=== PATIENT | female | born 1990 | race African-American/Black ===

== ENCOUNTER 2020-02-14 09:16 | Emergency (ER) | payer SELFPAY ==
[2020-02-14 09:22] VITALS: BP 132/75; PULSE 85; RESP 20; TEMP 37.1; O2SAT 100
--- NOTE | 2020-02-14 09:34 | ED.DENTAL ---
HPI - Dental/Oral General Chief complaint: Dental/Oral Stated complaint: toothache Time Seen by Provider: 02/14/20 09:18 Source: RN notes reviewed History of Present Illness HPI Narrative: Patient presents emergency department from home for dental pain. Patient states symptoms been ongoing for the past 1 week. Pain is located in the right upper molar region. States that pain is worse with chewing. Patient states she took no pain medication today and drove her self to the emergency department. She states she does not currently have a dentist. She denies any fevers or chills ear pain rhinorrhea sore throat or any other symptoms. Denies any chance of Related Data Home Medications Medication Instructions Recorded Confirmed No Home Medications 02/14/20 02/14/20 Allergies Allergy/AdvReac Type Severity Reaction Status Date / Time No Known Allergies Allergy Verified 02/14/20 09:18 Review of Systems Review of Systems: Narrative: Gen.: Denies fevers or chills Eyes: Denies eye pain or visual change ENT: See HPI Respiratory: Denies shortness of breath or cough CV: Denies chest pain GI: Denies abdominal pain nausea, emesis denies Musculoskeletal: Denies neck pain Neuro: Denies headache Skin: Denies rash Except as documented, all other systems reviewed and negative PMFSH Past Medical History Medical History (Updated 02/14/20 @ 09:37 by Randy Cortes DO) Patient denies significant medical history Social History Social History (Updated 02/14/20 @ 09:36 by Randy Cortes DO) Smoking status: Never smoker Gender identity (if verbalized by the patient): Female Exam Narrative: Exam Narrative: APPEARANCE: No acute distress, nontoxic, resting in bed HEENT: Normocephalic, atraumatic, TMs clear bilaterally, nares patent, oral mucosa moist, airway patent, tooth #1 is carious and tender to palpation mild erythema with no fluctuance of the gum pain with biting on the tooth in this region, there is no swelling of the cheek no submandibular or sublingual or tenderness, tonsils 2+ with no exudate tolerating own secretions no trismus RESPIRATORY: No respiratory distress MUSCULOSKELETAl: Moves all extremities. NEURO: Awake and alert. Following commands, speech normal, no focal deficits SKIN:: Warm, dry. Normal Color PSYCHIATRIC: Normal affect/mood Course Course Emergency Course: Discussed with patient results of workup and diagnosis. Discussed need for follow-up with primary care, proper use of medication, and reasons to return to the emergency department. Patient understands and agrees to current treatment plan Vital Signs Vital signs: Vital Signs Temperature 98.8 F 02/14/20 09:22 Pulse Rate 85 02/14/20 09:22 Respiratory Rate 20 02/14/20 09:22 Blood Pressure 132/75 02/14/20 09:22 Pulse Oximetry 100 02/14/20 09:22 Temperature 98.8 F 02/14/20 09:22 Pulse Rate 85 02/14/20 09:22 Respiratory Rate 20 02/14/20 09:22 Blood Pressure 132/75 02/14/20 09:22 Pulse Oximetry 100 02/14/20 09:22 Discharge Plan Discharge Clinical Impression: Dental caries, Toothache Patient Disposition: Home, Self-Care Condition: Stable Instructions: Antibiotic Form, Dental Abscess (ED), Toothache (ED) Additional Instructions: Return for increasing pain fever or any other symptoms of concern Prescriptions: New penicillin V potassium 500 mg tablet 500 mg PO TID Qty: 40 RF: 0 ibuprofen [IBU] 600 mg tablet 600 mg PO Q6H PRN (Reason: pain) Qty: 20 RF: 0 No Action No Home Medications RF: 0 Follow-up/Referrals: [facility] Dental [facility] [Outside] - [address] [facility] [Outside] - 1 Day PHYSICIAN,[employer] [Primary Care Provider] - Stand Alone Forms: Work/School Release IP Time of Disposition: 09:38
[2020-02-14] MEDS: IBUPROFEN 600 MG TABLET PO (09:40)
[2020-02-14] MEDS: PENICILLIN V POTASSIUM 250 MG TABLET 500 MG PO (09:43)
== END 2020-02-14 09:49 | disposition home or self-care (01) ==
LOC: ANHED 09:42
PROVIDERS: Emergency Provider Emergency Medicine
DX: K02.9 Dental caries, unspecified (principal)
CPT/HCPCS: 99283; A9270